=== PATIENT | male | born 1980 | race Two or more races ===

== ENCOUNTER 2018-08-03 19:30 | Observation (INO) | payer MEDICAID ==
[~2018-08-03] VITALS: Ht 170.2 cm; Wt 64.4 kg
[2018-08-03 20:13] LABS: Eosinophils # (auto) 0 uL; Hematocrit 42.9 % (41.0-53.0); Hemoglobin 14.5 g/dL (13.5-17.5); Lymphocytes # (auto) 1.1 uL; Mean Corpuscular Hemoglobin 34.2 pg (28.0-32.0); Mean Corpuscular Hgb Conc. 33.9 g/dL (32.0-36.0); Mean Corpuscular Volume 100.9 fL (80.0-100.0); Monocytes # (auto) 0.3 uL; Nucleated Red Blood Cells % 0.1 %; Red Blood Cells 4.25 10^6/uL (4.5-5.90)
[2018-08-03 20:15] LABS: Basophils # (auto) 0 uL; Basophils % (auto) 0.8 % (0.0-2.0); Eosinophils % (auto) 1.2 % (0.0-7.0); Lymphocytes % (auto) 35.5 % (10.0-50.0); Monocytes % (auto) 8.7 % (0.0-12.0); Neutrophils # (auto) 1.7 uL; Neutrophils % (auto) 53.8 % (37.0-80.0); Platelet Count (auto) 37 10^3/uL (140-450); Red Cell Distribution Width 14.6 % (11.8-14.3); White Blood Cell 3.1 10^3/uL (4.4-10.8)
[2018-08-03 20:27] LABS: Albumin 3.8 g/dL (3.4-5.0); BUN/Creatinine Ratio 7.1; Calcium 8.2 mg/dL (8.5-10.1); Magnesium 1.9 mg/dL (1.6-2.6)
[2018-08-03 20:30] LABS: Bilirubin, Total 2.8 mg/dL (0.2-1.0)
[2018-08-03 20:40] LABS: Urine Bacteria NONE SEEN /hpf (None Seen); Urine Blood Negative /uL (Negative); Urine Mucus FEW (None Seen); Urine Specific Gravity 1.013 (1.001-1.035); Urine WBC 1 /hpf (0 - 3)
[2018-08-03 21:51] LABS: Amphetamine Screen, Urine NEGATIVE (NEGATIVE); Barbiturate Scree,Urine NEGATIVE (NEGATIVE); Benzodiazephine Screen, Urine NEGATIVE (NEGATIVE); Cannabinoid Screen, Urine POSITIVE (NEGATIVE); Cocaine Screen, Urine NEGATIVE (NEGATIVE); Opiate Scree,Urine NEGATIVE (NEGATIVE); Phencyclidine Screen, Urine NEGATIVE (NEGATIVE)
[2018-08-04] MEDS ORDERED: THIAMINE INJ 100 MG, MULTIPLE VITAMIN 10 ML, FOLIC ACID 1 MG, MAGNESIUM SULF SDV 50% 8 ... IV SCH ×5 (01:15)
[2018-08-04] MEDS ORDERED: SODIUM CHLORIDE 0.9% 1,000 ML IV ONE (02:45)
[2018-08-04 05:19] VITALS: BP 111/63
== END 2018-08-04 05:37 | disposition home or self-care (01) | DRG 52 ==
LOC: ER 19:34 → OVERFLOW 19:35 → ER 08-04 05:37
PROVIDERS: ADMIT Emergency Medicine; ATTEND Emergency Medicine
DX: G92 Toxic encephalopathy (principal); F10.220 Alcohol dependence with intoxication, uncomplicated; F12.10 Cannabis abuse, uncomplicated; Z83.3 Family history of diabetes mellitus
CPT/HCPCS: 36415; 80053; 80307; 80320; 81001; 83735; 85025; 96365; G0378; J7030

== ENCOUNTER 2019-09-14 19:24 | Emergency (ER) | payer MEDICAID ==
[~2019-09-14] VITALS: Ht 167.6 cm; Wt 74.8 kg
[2019-09-14] MEDS ORDERED: SODIUM CHLORIDE 0.9% 1,000 ML IV ONE (21:15)
[2019-09-14] MEDS ORDERED: THIAMINE INJ 100 MG in SODIUM CHLORIDE 0.9% 1,000 ML IV ONE (21:15)
[2019-09-15 04:10] LABS: White Blood Cell 3.2 10^3/uL (4.4-10.8)
[2019-09-15 04:11] LABS: Hematocrit 41.9 % (41.0-53.0); Hemoglobin 14.1 g/dL (13.5-17.5); Mean Corpuscular Hgb Conc. 33.7 g/dL (32.0-36.0); Mean Corpuscular Volume 103.8 fL (80.0-100.0); Platelet Count (auto) 51 10^3/uL (140-450); Red Blood Cells 4.04 10^6/uL (4.5-5.90); Red Cell Distribution Width 13.1 % (11.8-14.3)
[2019-09-15 04:20] LABS: Band Neutrophils % (manual) 0; Basophils % (manual) 0 (0.0-2.0); Blast Cells 0; Metamyelocytes % 0; Myelocytes % 0; Promyelocytes % 0; Reactive Lymphocytes 0
[2019-09-15 04:25] LABS: Amylase 108 U/L (25-115); Lipase 334 U/L (73-393)
[2019-09-15 04:26] LABS: Albumin 3.7 g/dL (3.4-5.0); BUN/Creatinine Ratio 7.6; Calcium 8.4 mg/dL (8.5-10.1); Potassium 3.9 mmol/L (3.5-5.1)
[2019-09-15 04:29] LABS: Bilirubin, Total 1.5 mg/dL (0.2-1.0); Total Protein 9.7 g/dL (6.4-8.2)
[2019-09-15 07:37] LABS: Eosinophils % (manual) 6 (0-7); Lymphocytes % (manual) 51 (10.0-50.0); Monocytes % (manual) 16 (0-12)
[2019-09-15 11:20] VITALS: BP 105/66
== END 2019-09-15 11:37 | disposition home or self-care (01) ==
LOC: EDBD 19:24 → ER 19:24
DX: F10.229 Alcohol dependence with intoxication, unspecified (principal); K70.9 Alcoholic liver disease, unspecified; Y90.8 Blood alcohol level of 240 mg/100 ml or more
CPT/HCPCS: 36415; 80053; 80320; 82150; 83690; 96365; 99283; J3411; J7030

== ENCOUNTER 2019-11-07 14:51 | Inpatient (IN) | payer MEDICAID ==
[~2019-11-07] VITALS: Ht 167.6 cm; Wt 69.7 kg
[2019-11-07] MEDS ORDERED: SODIUM CHLORIDE 0.9% 1,000 ML IV ONE ×2 (15:10)
[2019-11-07] MEDS ORDERED: LEVETIRACETAM INJ 500 MG in D5W 5% 100 ML IV ONE (16:00)
[2019-11-07 16:04] LABS: Urine Bacteria NONE SEEN /hpf (None Seen); Urine Blood Negative /uL (Negative); Urine Mucus FEW (None Seen); Urine Specific Gravity 1.023 (1.001-1.035); Urine WBC 1 /hpf (0 - 3)
[2019-11-07 16:43] LABS: Eosinophils # (auto) 0 uL; Lymphocytes # (auto) 0.3 uL
[2019-11-07 16:45] LABS: Basophils # (auto) 0.1 uL; Basophils % (auto) 2.1 % (0.0-2.0); Hemoglobin 12.8 g/dL (13.5-17.5); Lymphocytes % (auto) 4.4 % (10.0-50.0); Mean Corpuscular Hemoglobin 34.7 pg (28.0-32.0); Mean Corpuscular Hgb Conc. 34.6 g/dL (32.0-36.0); Mean Corpuscular Volume 100.3 fL (80.0-100.0); Monocytes # (auto) 0.5 uL; Neutrophils # (auto) 4.8 uL; Neutrophils % (auto) 84.5 % (37.0-80.0); Nucleated Red Blood Cells % 0.1 %; Platelet Count (auto) 66 10^3/uL (140-450); Red Blood Cells 3.69 10^6/uL (4.5-5.90); Red Cell Distribution Width 15.1 % (11.8-14.3); White Blood Cell 5.6 10^3/uL (4.4-10.8)
[2019-11-07] MEDS ORDERED: chlordiazePOXIDE HCL 25 MG CAP PO ONE (16:45)
[2019-11-07 16:46] LABS: Calcium 8.6 mg/dL (8.5-10.1); Potassium 3.6 mmol/L (3.5-5.1)
[2019-11-07 16:49] LABS: Albumin 3.2 g/dL (3.4-5.0); BUN/Creatinine Ratio 8.6
[2019-11-07 16:54] LABS: Bilirubin, Total 3.2 mg/dL (0.2-1.0); Total Protein 8.2 g/dL (6.4-8.2)
[2019-11-07 17:12] LABS: Cannabinoid Screen, Urine POSITIVE (NEGATIVE)
[2019-11-07 17:21] LABS: Alcohol, Urine < 3.0 mg/dL (0-5); Amphetamine Screen, Urine NEGATIVE (NEGATIVE); Barbiturate Scree,Urine NEGATIVE (NEGATIVE); Benzodiazephine Screen, Urine NEGATIVE (NEGATIVE); Cocaine Screen, Urine NEGATIVE (NEGATIVE); Opiate Scree,Urine NEGATIVE (NEGATIVE); Phencyclidine Screen, Urine NEGATIVE (NEGATIVE)
[2019-11-07] MEDS ORDERED: THIAMINE 100mg/ml INJ (200mg/2ml VIAL) IV ONE (18:15)
[2019-11-07] MEDS ORDERED: PIPERACILLIN-TAZOB 3.375GM 100 ML IV ONE (18:15)
[2019-11-07] MEDS ORDERED: ENOXAPARIN SOD 30 MG/0.3 ML SYRINGE SC ONE (18:15)
[2019-11-07] MEDS ORDERED: IBUPROFEN 600 MG TAB PO ONE (18:30)
[2019-11-07] MEDS ORDERED: LORazepam 2MG/ML-1ML VIAL IV PRN (21:00)
[2019-11-07] MEDS ORDERED: ONDANSETRON HCL 4 MG/2 ML VIAL IV PRN (21:00)
[2019-11-07] MEDS ORDERED: TEMAZEPAM 15 MG CAP PO PRN (21:00)
[2019-11-07] MEDS ORDERED: NITROGLYCERIN 0.4 MG SL TAB SL PRN (21:30)
[2019-11-07] MEDS ORDERED: MORPHINE SULF INJ 2 MG/ML SYRINGE 1ML IV PRN (21:30)
--- NOTE | 2019-11-07 23:15 | NUR ---
Telemetry admit from [facility] PIZANOLA[facility] admitted to Telemetry unit after NO SBAR WAS received. Patient oriented to TOOTIE HONG RN primary RN, unit, room, bed, and unit policies regarding patient care and visiting hours. Patient now on continuous telemetry monitoring, tele box # 69 and telemetry reading on arrival to unit is sinus rhythm 8 1bpm. Patient weighed by bedscale and encouraged to call if they need something. All questions and concerns addressed, patient verbalized understanding. Patient is A/O x4, on RA, skin is overall intact but there is an abrasion to the upper and lower lip from falling due to a seizure at home on 11/07/19. Call light is within reach, side rails up x2, bed is in lowest position, bed alarm is on, SEIZURE PRECAUTIONS ARE AT BEDSIDE. Will continue to monitor.
--- NOTE | 2019-11-07 23:15 | NUR ---
Patient states he will have a family member bring in his home medications tomorrow.
[2019-11-07] MEDS: LEVETIRACETAM INJ 500 MG in D5W 5% 100 ML IV SCH (23:35)
[2019-11-07 23:54] VITALS: BP 112/58
--- NOTE | 2019-11-07 23:55 | NUR ---
Wound picture taken of upper and lower lip for admission reference.
[2019-11-08 05:46] VITALS: BP 98/60
[2019-11-08 06:32] LABS: Potassium 3.2 mmol/L (3.5-5.1)
[2019-11-08 06:40] LABS: Albumin 2.9 g/dL (3.4-5.0); BUN/Creatinine Ratio 12.7; Bilirubin, Total 3.5 mg/dL (0.2-1.0); Total Protein 7.2 g/dL (6.4-8.2)
--- NOTE | 2019-11-08 07:30 | NUR ---
Endorsed care to Rayray HAHN. Patient is resting in bed, no S/S of distress or pain. Seizure precautions are in place. Call light is within reach.
[2019-11-08 08:19] VITALS: BP 115/67
[2019-11-08] MEDS ORDERED: ASPirin 81 mg TAB PO SCH (10:00)
[2019-11-08] MEDS: LEVETIRACETAM INJ 500 MG in D5W 5% 100 ML IV SCH (10:04)
[2019-11-08] MEDS: PANTOPRAZOLE 40 MG TAB PO SCH (10:04)
[2019-11-08 10:56] LABS: Basophils # (auto) 0 uL; Basophils % (auto) 0.7 % (0.0-2.0); Eosinophils # (auto) 0.1 uL; Eosinophils % (auto) 1.5 % (0.0-7.0); Hemoglobin 12.1 g/dL (13.5-17.5); Lymphocytes # (auto) 0.9 uL; Monocytes # (auto) 0.7 uL; Neutrophils # (auto) 2.5 uL; Nucleated Red Blood Cells % 0.2 %; White Blood Cell 4.2 10^3/uL (4.4-10.8)
[2019-11-08 10:59] LABS: Hematocrit 34.6 % (41.0-53.0); Lymphocytes % (auto) 21.5 % (10.0-50.0); Mean Corpuscular Hemoglobin 34.9 pg (28.0-32.0); Mean Corpuscular Hgb Conc. 34.8 g/dL (32.0-36.0); Mean Corpuscular Volume 100.3 fL (80.0-100.0); Neutrophils % (auto) 60.3 % (37.0-80.0); Red Blood Cells 3.45 10^6/uL (4.5-5.90); Red Cell Distribution Width 14.8 % (11.8-14.3)
[2019-11-08] MEDS ORDERED: POTASSIUM CHL 20 Meq TABLET PO ONE (11:30)
[2019-11-08 11:40] LABS: Platelet Count (auto) 17 10^3/uL (140-450)
--- NOTE | 2019-11-08 11:40 | NUR ---
RECEIVED CRITICAL PLATLET FROM JESENIA IN LAB. WILL NOTIFY Tari DOVE.
--- NOTE | 2019-11-08 11:49 | NUR ---
ZANA DOVE OF CRITICAL PLATLET. NEW ORDERS IN EMR.
--- NOTE | 2019-11-08 13:08 | NUR ---
CALLED PHARMACY REGARDING MULTIVITAMIN BAG. PER PHARMACY STILL WAITING FOR BAGS TO BE VERIFIED.
[2019-11-08 13:21] VITALS: BP 98/52
[2019-11-08] MEDS: FOLIC ACID 1 MG, MULTIPLE VITAMIN 10 ML, MAGNESIUM SULF SDV 50% 8 MEQ, THIAMINE INJ 100... INJ SCH ×5 (13:43)
--- NOTE | 2019-11-08 16:44 | NUR ---
assessment re: ss consult Patient is a 39 year old male who is alert and oriented. Rayray HAHN translated for us. Patients cognitive abilities are intact. Prior to admission patient lived home with family and functioned independently. Patient informed me he is able to care for his own ADLs. Per patient he will return home to his prior living arrangements post discharge and family will transport him home. Patient informed me he has had seizures for the past 1.5 years. Patient informed me he quit taking his medications because they make him feel sluggish. Patient may benfit from home health safety on discharge. Patient informed me he feels safe returning home on discharge. I informed patient he has a right to speak to a social media community manager regarding all care. I informed patient he has a right to participate in any and all discharge planning. Patient does not have a POA and advanced directive. I have offered patient information on POA and advanced directives. I informed the patient the advantages and benefits of having an Advanced Directive. Patient verbalized understanding and agreed to discharge plan. Addendum: 11/08/19 at 1652 by Gauri VANESSA Amended: Links added.
[2019-11-08 16:50] VITALS: BP 105/72
--- NOTE | 2019-11-08 19:56 | NUR ---
Opening Shift Note Assumed care of patient, awake and alert. No S/S of distress/SOB or pain. Will continue to monitor for changes Q1hr and PRN. Call zamorano with in reach. Bed in low position.
[2019-11-08 22:21] VITALS: BP 148/74
--- NOTE | 2019-11-08 23:03 | NUR ---
PATIENT AMBULATING WITH UNSTEADY GAIT. DENIES N/V,DENIES HALLUCINATION, A&OX4, NO TREMORS NOTED, LAST ALCOHOL DRINK 4 DAYS AGO, NO S/SX OF ALCOHOL WITHDRAWAL NOTED. ENCOURAGE TO CALL FOR HELP, BEFORE GETTING OUT OF BED. BED ALARM ON.
--- NOTE | 2019-11-09 01:32 | NUR ---
PATIENT HAVING EPISODES OF HALLUCINATIONS/PARANOIA, PATIENT SAID "SOMEONE IS GOING TO GET HIM". PATIENT PUT HIS CLOTHES ON AND TRIED TO LEAVE. SECURITY GUARDS CALLED TO STOP PATIENT. LIBRIUM GIVEN. CALLED HOSPITALIST FOR FURTHER ORDERS.
[2019-11-09] MEDS: chlordiazePOXIDE HCL 25 MG CAP PO PRN ×2 (01:35→13:48)
--- NOTE | 2019-11-09 01:42 | NUR ---
HOSPITALIST CALLED BACK WITH NEW ORDER FOR LORAZEPAM 1MG IV Q4HRS PRN ANXIETY/ALCOHOL WITHDRAWAL.
[2019-11-09] MEDS: LORazepam 2MG/ML-1ML VIAL IV PRN ×5 (01:56→21:37)
--- NOTE | 2019-11-09 01:56 | NUR ---
LORAZEPAM 1MG IV GIVEN.
--- NOTE | 2019-11-09 02:11 | NUR ---
PATIENT TRANSFERRED TO ROOM 214 SITTER ROOM DUE TO RISK OF LEAVING HOSPITAL. REPORT GIVEN TO MYAH. TRANSFERRED VIA WHEELCHAIR.
--- NOTE | 2019-11-09 02:20 | NUR ---
RECEIVED REPORT FROM LINDSEY RN AND ASSUMED CARE OF PT AT THIS TIME.
--- NOTE | 2019-11-09 02:25 | NUR ---
FLORIST DESIGNER CALLED SECURITY TO ROOM BECAUSE PT REFUSING TO ENTER THE ROOM. SECURITY ENCOURAGED PT IT IS OK TO ENTER THE ROOM. PT SPEAKS MOSTLY PORTUGUESE AND VERBALIZES UNDERSTANDING AND GOT INTO BED. BED IS LOW, WHEELS ARE LOCKED, AND CALL LIGHT IS WITH IN REACH. PT ALSO WITH SITTER FOR PT SAFETY.
--- NOTE | 2019-11-09 04:55 | NUR ---
PT REPORTED TO HAVE PULLED A KNIFE ON PT IN BED B AND SECURITY CALLED AND KNIFE RETRIEVED AND DR LAGUERRE GAVE ORDERS FOR 4 POINT RESTRAINTS.
[2019-11-09 05:00] VITALS: BP 134/60
--- NOTE | 2019-11-09 05:00 | NUR ---
PT PLACED IN 4 POINT SOFT RESTRAINTS AT THIS TIME.
--- NOTE | 2019-11-09 07:00 | NUR ---
PT CONTINUES TO BE DELUSIONAL STATING THAT SOMEONE IS COMING AFTER HIM AND THAT HE WANTS HIS CLOTHING BACK. EXPLAINED TO PT THAT HE IS IN THE HOSPITAL AND THAT HE IS SAFE HERE. PT THEN STATES " NO, I WILL KEEP MYSELF SAFE." PT WILL SPEAK IN THAI AND BULGARIAN AND UNDERSTANDS AND ANSWERS WHEN SPOKEN TO IN THAI. PT HAS BEEN CLEANED AND ALL LINENS AND GOWN HAS BEEN CHANGED R/T PT IS INCONTINENT OF URINE.
--- NOTE | 2019-11-09 07:00 | NUR ---
Opening Shift Note Assumed care of patient, awake and alert. No S/S of distress/SOB or pain. Bed in lowest/locked position, bed rails up x2, call light within reach, sitter at bedside. Safety measures in place. Instructed on POC and to call for assist PRN, will continue to monitor for changes Q1hr and PRN.
--- NOTE | 2019-11-09 08:00 | NUR ---
ROUNDS PATIENT AGITATED SPEAKING PART [place] LEONEAN, PART HUNGARIAN, PART RAMBLING. UNCOMPREHENSIBLE LANGUAGE AT TIMES. PATIENT LUNGING AT EMPLOYEES. PATIENT ASKING ABOUT HIS KNIFE. REORIENTING PATIENT TO SITUATION, TIME, AND PLACE.
[2019-11-09 09:00] VITALS: BP 159/72
--- NOTE | 2019-11-09 09:00 | NUR ---
ROUNDS PATIENT AGITATED SPEAKING PART SLOVAK, PART SLOVENIAN, PART RAMBLING. UNCOMPREHENSIBLE LANGUAGE AT TIMES. PATIENT LUNGING AT EMPLOYEES. PATIENT ASKING ABOUT HIS KNIFE. REORIENTING PATIENT TO SITUATION, TIME, AND PLACE. MD AWARE. NEW ORDERS RECEIVED/CARRIED OUT. WILL CONTINUE TO MONITOR Q15MIN PER PROTOCOL
[2019-11-09 09:59] LABS: Basophils # (auto) 0 uL; Eosinophils # (auto) 0.1 uL; Hemoglobin 12.6 g/dL (13.5-17.5); Lymphocytes # (auto) 0.9 uL; Mean Corpuscular Hemoglobin 34.3 pg (28.0-32.0); Monocytes # (auto) 0.6 uL; Neutrophils # (auto) 2.3 uL; White Blood Cell 3.9 10^3/uL (4.4-10.8)
[2019-11-09] MEDS: PANTOPRAZOLE 40 MG TAB PO SCH (10:00)
--- NOTE | 2019-11-09 10:00 | NUR ---
ROUNDS PATIENT AGITATED SPEAKING PART ROMANIAN, PART WELSH, PART RAMBLING. PATIENT SPAT OUT MORNING MEDS. EDUCATED PATIENT ON IMPORTANCE OF MEDS. PATIENT REFUSING AT THIS TIME. WILL CONTINUE TO EDUCATE AND MONITOR
[2019-11-09 10:01] LABS: Basophils % (auto) 0.9 % (0.0-2.0); Eosinophils % (auto) 2.1 % (0.0-7.0); Hematocrit 37.1 % (41.0-53.0); Lymphocytes % (auto) 22.5 % (10.0-50.0); Mean Corpuscular Hgb Conc. 33.9 g/dL (32.0-36.0); Mean Corpuscular Volume 101.2 fL (80.0-100.0); Monocytes % (auto) 15.4 % (0.0-12.0); Neutrophils % (auto) 59.1 % (37.0-80.0); Nucleated Red Blood Cells % 0.1 %; Red Blood Cells 3.67 10^6/uL (4.5-5.90); Red Cell Distribution Width 14.9 % (11.8-14.3)
[2019-11-09 10:04] LABS: Platelet Count (auto) 19 10^3/uL (140-450)
[2019-11-09 10:18] LABS: BUN/Creatinine Ratio 8.3; Calcium 8.5 mg/dL (8.5-10.1); Potassium 3.4 mmol/L (3.5-5.1)
[2019-11-09] MEDS ORDERED: HALOPERIDOL LACTATE 5 MG/ML INJ VIAL IM PRN (11:15)
--- NOTE | 2019-11-09 11:30 | NUR ---
MEDICATIONS PATIENT EXTREMELY AGITATED, LUNGING AT CURRENCY EXAMINER. YELLING AND SCREAMING, ASKING FOR HIS KNIFE. WILL MEDICATE PER MD ORDERS
--- NOTE | 2019-11-09 12:30 | NUR ---
ROUNDS PATIENT STILL AGITATED. MEDICATED PER MD ORDERS. WILL CONTINUE TO MONITOR
[2019-11-09 13:00] VITALS: BP 112/68
--- NOTE | 2019-11-09 13:00 | NUR ---
PAGED PAGED DR MCGRATH RE: PATIENT AGITATION AND HOSTILE BEHAVIORS. NEW ORDER RECEIVED/ CARRIED OUT. WILL CONTINUE TO MONITOR.
[2019-11-09] MEDS ORDERED: HALOPERIDOL LACTATE 5 MG/ML INJ VIAL IM ONE (13:15)
--- NOTE | 2019-11-09 13:30 | NUR ---
URINATION PATIENT REFUSED TO URINATE IN URINAL, AIMED TOWARDS PATIENT IN B BED. EDUCATED PATIENT ON "THERE WILL BE NO TOLERANCE ON THESE ACTIONS." PATIENT PASSIVE AND RAMBLING.
[2019-11-09] MEDS: POTASSIUM CHLORIDE 20 MEQ in D5W/LACTATED RINGERS 1,000 ML IV SCH ×2 (13:35→21:37)
[2019-11-09 13:58] LABS: Cholesterol 156 mg/dL (< 200)
--- NOTE | 2019-11-09 14:00 | NUR ---
ROUNDS US [facility] IN ROOM PATIENT SITTING UP IN BED LUNGING AT [facility]. POWERTRAIN ENGINEER ASSISTED PATIENT BACK TO SUPINE POSITION AND INSTRUCTED PATIENT TO RELAX. PATIENT EXTREMELY AGITATED. NOTIFIED DR MCGRATH. NEW ORDERS RECEIVED/CARRIED OUT. WILL CONTINUE TO MONITOR
[2019-11-09 14:03] LABS: HDL Cholesterol 76 mg/dL (40-59); LDL Cholesterol 69 mg/dL (< 100); Triglycerides 73 mg/dL (< 150)
[2019-11-09] MEDS ORDERED: ETOMIDATE (2MG/ML) 20ML VIAL IV ONE (14:29)
--- NOTE | 2019-11-09 14:30 | NUR ---
ROOMS PATIENT MOVED TO ROOM 204 DUE TO AGGRESSIVE BEHAVIOR TO BED B. PATIENT ASLEEP, EVEN UNLABORED RESPIRATIONS. WILL CONTINUE TO MONITOR
[2019-11-09] MEDS ORDERED: ROCURONIUM 10MG/ML 10ML VIAL IV ONE (14:31)
[2019-11-09 17:00] VITALS: BP 125/82
--- NOTE | 2019-11-09 17:00 | NUR ---
ROUNDS VITAL SIGNS BEING ASSESSED, MEDICATING PATIENT AT THIS TIME AND PATIENT AWOKE BEING AGGRESSIVE, YELLING AND SCREAMING. ATTEMPTED TO DISTRACT PATIENT AND ASKED HIM TO RELAX. PATIENT IGNORING RN REQUEST STILL AGITATED. WILL NOTIFY MD
[2019-11-09] MEDS: FOLIC ACID 1 MG, MULTIPLE VITAMIN 10 ML, MAGNESIUM SULF SDV 50% 8 MEQ, THIAMINE INJ 100... INJ SCH ×5 (17:09)
--- NOTE | 2019-11-09 17:15 | NUR ---
MD DR MARTINEZ AT BEDSIDE ATTEMPTING TO DISCUSS POC WITH PATIENT. PATIENT REFUSING TO LISTEN. NEW ORDERS RECEIVED/CARRIED OUT. WILL CONTINUE TO MONITOR
--- NOTE | 2019-11-09 19:30 | NUR ---
Opening Shift Note: A&Ox0-1, restless in bed. Room air, pain level 0/10 Landeros-Quinn scale, and currently bedrest. Bed locked in lowest position, side rails up x3, call light within reach, bed alarm on for patient safety, and sitter present at bedside for patient safety. Patient is currently in x4 soft restraints related to violent and combative behavior related to alcohol withdrawal. IV: 22 g in right forearm currently running a banana bag at 126 ml/hr inserted on 11/09/19. Skin: swollen/scabbed lip and bump to the forehead both CHANGE OF ADDRESS CLERK. Patient is unable to understand the plan of care or education at this time. Will continue to round Q15min per behavioral restraint protocol.
--- NOTE | 2019-11-09 21:00 | NUR ---
Behavioral restraint order renewed by Jamaal Lin MD.
[2019-11-09 22:00] VITALS: BP 132/84
[2019-11-10] MEDS: chlordiazePOXIDE HCL 25 MG CAP PO PRN (00:48)
--- NOTE | 2019-11-10 00:58 | NUR ---
Behavioral restraint order renewed by Jamaal Lin MD. Current status of patient: talking to the wall and "people" that aren't there; hallucinations present; patient unable to state his name, place, situation, or current time. Tremors are now present in bilateral hands and patient is very restless. New order received to increased Ativan to 2 mg Q4H for alcohol withdrawal.
[2019-11-10] MEDS: LORazepam 2MG/ML-1ML VIAL IV PRN ×2 (01:30→05:45)
[2019-11-10 05:34] VITALS: BP 124/91
--- NOTE | 2019-11-10 07:30 | NUR ---
Opening Shift Note RECEIVED REPORT FROM NOC RN. Assumed care of patient, awake and alert. No S/S of distress/SOB or pain. BED IN LOWEST, LOCKED POSITION WITH SIDERTAILS UP x2 AND CALL LIGHT WITHIN REACH. PATIENT IS IN 4-POINT SOFT RESTRAINTS WITH SITTER AT BEDSIDE. Will continue to monitor for changes Q15MIN and PRN.
[2019-11-10] MEDS: POTASSIUM CHLORIDE 20 MEQ in D5W/LACTATED RINGERS 1,000 ML IV SCH (07:43)
[2019-11-10] MEDS: PANTOPRAZOLE 40 MG TAB PO SCH (10:00)
[2019-11-10] MEDS: FOLIC ACID 1 MG, MULTIPLE VITAMIN 10 ML, MAGNESIUM SULF SDV 50% 8 MEQ, THIAMINE INJ 100... INJ SCH ×5 (11:36)
--- NOTE | 2019-11-10 12:50 | NUR ---
DR. MARTINEZ AT BEDSIDE. RESTRAINTS DISCONTINUED PER DR. MARTINEZ'S ORDERS. CONTINUE LIBRIUM AND BANANA BAG. SITTER REMAINS AT BEDSIDE.
[2019-11-10 14:42] LABS: Hemoglobin 13.4 g/dL (13.5-17.5)
[2019-11-10 14:44] LABS: Hematocrit 39.2 % (41.0-53.0); Mean Corpuscular Hemoglobin 34.2 pg (28.0-32.0); Mean Corpuscular Hgb Conc. 34.2 g/dL (32.0-36.0); Mean Corpuscular Volume 100.2 fL (80.0-100.0); Platelet Count (auto) 49 10^3/uL (140-450); Red Blood Cells 3.91 10^6/uL (4.5-5.90); Red Cell Distribution Width 15.1 % (11.8-14.3)
[2019-11-10 14:45] LABS: Basophils % (manual) 0 (0.0-2.0); Blast Cells 0; Eosinophils % (manual) 0 (0-7); Metamyelocytes % 0; Myelocytes % 0; Promyelocytes % 0; Reactive Lymphocytes 0
[2019-11-10 14:54] LABS: Band Neutrophils % (manual) 1; Lymphocytes % (manual) 13 (10.0-50.0); Monocytes % (manual) 14 (0-12)
[2019-11-10 14:55] LABS: INR 1.38 (0.9-1.15); Partial Thromboplastin Time 30.8 sec (23.64-32.05)
[2019-11-10 14:59] LABS: Albumin 3.2 g/dL (3.4-5.0); Calcium 8.8 mg/dL (8.5-10.1); Potassium 3.4 mmol/L (3.5-5.1)
[2019-11-10 15:02] LABS: BUN/Creatinine Ratio 4.6; Bilirubin, Total 2.5 mg/dL (0.2-1.0); Phosphorus 3.8 mg/dL (2.5-4.90); Total Protein 8.2 g/dL (6.4-8.2)
[2019-11-10 17:00] VITALS: BP 140/86
--- NOTE | 2019-11-10 19:30 | NUR ---
Opening Shift Note Assumed care of patient, patient is sleeping rr 17 chest rise and fall bilateral. No S/S of distress/SOB or pain. will continue to monitor for changes Q1hr and PRN. bed in low position and call light within reach. bed alarm on
[2019-11-10] MEDS ORDERED: POTASSIUM EFFERVESENT TAB 25 MEQ PO ONE (20:30)
[2019-11-10 22:00] VITALS: BP 122/85
--- NOTE | 2019-11-11 03:30 | NUR ---
provided patient with towels/linen to help patient clean up. patient refused.
--- NOTE | 2019-11-11 03:34 | NUR ---
spoke with special education professional pharmacy spoke with oncall pharmacy . patient has iv fluids due. bag available in pyxis is . per pharmacist bruce wait until pharmacy comes in at 0600 to obtain a new bag.
[2019-11-11] MEDS: POTASSIUM CHLORIDE 20 MEQ in D5W/LACTATED RINGERS 1,000 ML IV SCH ×3 (03:39→13:45)
[2019-11-11 05:21] VITALS: BP 122/77
--- NOTE | 2019-11-11 06:30 | NUR ---
CALLED PHARMACY LINE NOT GOING THROUGH PER CLINICAL SCIENCE LIAISON. EXTENSION NUMBER PROVIDED
[2019-11-11 06:34] LABS: Hemoglobin 12.8 g/dL (13.5-17.5)
[2019-11-11 06:37] LABS: Hematocrit 37.7 % (41.0-53.0); Mean Corpuscular Volume 100.2 fL (80.0-100.0); Platelet Count (auto) 41 10^3/uL (140-450); Red Blood Cells 3.76 10^6/uL (4.5-5.90); Red Cell Distribution Width 15.3 % (11.8-14.3); White Blood Cell 3.9 10^3/uL (4.4-10.8)
[2019-11-11 06:41] LABS: Band Neutrophils % (manual) 0; Basophils % (manual) 0 (0.0-2.0); Blast Cells 0; Metamyelocytes % 0; Myelocytes % 0; Promyelocytes % 0; Reactive Lymphocytes 0
--- NOTE | 2019-11-11 06:42 | NUR ---
SPOKE WITH PHARMACY. PER PHARMACY THEY WILL SEND FLUIDS SCHEDULED WITHIN 10-15MIN.
--- NOTE | 2019-11-11 06:44 | NUR ---
PATIENT ROUNDS. PATIENT IS SLEEPING IN BED WITH BILATERAL CHEST RISE AND FALL RR 15. BED IN LOW POSITION CALL LIGHT WITHIN REACH. BED ALARM ON
[2019-11-11 07:12] LABS: Potassium 3.4 mmol/L (3.5-5.1)
[2019-11-11 07:19] LABS: BUN/Creatinine Ratio 7.4; Calcium 8.7 mg/dL (8.5-10.1)
--- NOTE | 2019-11-11 07:43 | NUR ---
report given to hailey myers
--- NOTE | 2019-11-11 07:50 | NUR ---
STRESS AIR TABLE OPERATOR AT BED SIDE WITH ADENOSINE INJECTION
--- NOTE | 2019-11-11 08:00 | NUR ---
ASSESSMENT NOTE PT IS RESTING IN BED COMFORTABLY, SLEEPY MOST OF THE TIME, ALERT ORIENTED X3, CONFUSED TO TIME AND SITUATION, PT HAS PUMP IN THE FOREHEAD, BRUISED LOWER LIP, SELF REPOSITION, ABLE TO IDENTIFY HIS DEMANDS, ON SEIZURE, FALL PRECAUTIONS , NEXT TO NURSING STATION, MONITOR PT AT ALL TIMES
[2019-11-11 08:35] VITALS: BP 122/66
[2019-11-11] MEDS ORDERED: ADENOSINE 57 MG in GIVE UN-DILUTED 0 ML IV STA (08:43)
[2019-11-11] MEDS: PANTOPRAZOLE 40 MG TAB PO SCH (08:45)
--- NOTE | 2019-11-11 09:00 | NUR ---
IV insertion IV access obtained, via clean sterile technique by inserting 20 gauge catheter at after attempt(s). IV secured properly. No trauma to site. Patient tolerated procedure well. for stress test purposes
--- NOTE | 2019-11-11 09:30 | NUR ---
OUT FOR STRESS TEST VIA WHEELCHAIR
--- NOTE | 2019-11-11 10:30 | NUR ---
PT IS BACK TO HIS ROOM, NO DISTRESS NOTED, CONTINUE MONITORING
[2019-11-11 10:55] LABS: Eosinophils % (manual) 5 (0-7); Lymphocytes % (manual) 23 (10.0-50.0); Monocytes % (manual) 19 (0-12)
[2019-11-11 10:57] VITALS: BP 120/79
[2019-11-11 16:49] VITALS: BP 121/77
[2019-11-11] MEDS: FOLIC ACID 1 MG, MULTIPLE VITAMIN 10 ML, MAGNESIUM SULF SDV 50% 8 MEQ, THIAMINE INJ 100... INJ SCH ×5 (17:21)
--- NOTE | 2019-11-11 18:54 | NUR ---
PT CONTINUE STABLE, CONTINUE MONITORING
--- NOTE | 2019-11-11 19:24 | NUR ---
Opening Shift Note Assumed care of patient, awake and alert times 4. Patient ambulated to the restroom without assistance. patient currently running banana bag per dayshift rn bag was started late. Patient allowed me to assess his back and upper/lower extremities. skin is intact. No S/S of distress/SOB or pain. Instructed on POC and to call for assist PRN, will continue to monitor for changes Q1hr and prn. bed in low position and call light within reach. seizure precautions in place.
[2019-11-11 22:00] VITALS: BP 126/77
[2019-11-12] MEDS: POTASSIUM CHLORIDE 20 MEQ in D5W/LACTATED RINGERS 1,000 ML IV SCH ×2 (00:59→09:57)
[2019-11-12 05:26] VITALS: BP 103/78
--- NOTE | 2019-11-12 06:38 | NUR ---
patient rounds patient in bed sleeping bilateral chest rise and fall rr 16. no signs of distress sob/pain. bed in low position and call light within reach.
--- NOTE | 2019-11-12 07:15 | NUR ---
Opening Shift Note Assumed care of patient, awake and alert. No S/S of distress/SOB or pain. Instructed on POC and to call for assist PRN, will continue to monitor for changes Q1hr and PRN. Fall precaution and seizure precautions in place per safety protocol.
--- NOTE | 2019-11-12 07:21 | NUR ---
report given to daysrachelft rn. patient denies sob/distress.
[2019-11-12 09:00] VITALS: BP 132/85
[2019-11-12] MEDS: PANTOPRAZOLE 40 MG TAB PO SCH (10:15)
[2019-11-12] MEDS: FOLIC ACID 1 MG, MULTIPLE VITAMIN 10 ML, MAGNESIUM SULF SDV 50% 8 MEQ, THIAMINE INJ 100... INJ SCH ×5 (12:00)
--- NOTE | 2019-11-12 12:00 | NUR ---
Hospitalist at bedside MD Kwan at bedside, aware of patient status. New orders for discharged received, will carry out new orders and cont to monitor patient.
[2019-11-12 12:51] VITALS: BP 130/85
--- NOTE | 2019-11-12 13:30 | NUR ---
Discharge instructions given as ordered. Encourage to follow up with PMD as instructed. All questions and concerns addressed. Patient verbalized understanding. Medication reconciliation form completed and copy given to patient. IV removed with catheter intact, pressure dressing applied. Telemetry unit returned to ICU. Patient refused wheelchair and taxi voucher. Patient took all personal belongings. No distress noted at time of departure.
== END 2019-11-12 13:30 | disposition home or self-care (01) | DRG 280 ==
LOC: EDBD 14:51 → ER 14:51 → TELE 14:52 → TELE-WESTW 23:10 → TELE-CENTR 11-09 02:57
PROVIDERS: ADMIT Nurse Practitioner; ATTEND Internal Medicine Nephrology
DX: K70.40 Alcoholic hepatic failure without coma (principal); K70.30 Alcoholic cirrhosis of liver without ascites; I21.A1 Myocardial infarction type 2; G92 Toxic encephalopathy; S12.9XXA Fracture of neck, unspecified, initial encounter; D61.818 Other pancytopenia; E88.09 Other disorders of plasma-protein metabolism, not elsewhere classified; F05 Delirium due to known physiological condition; R56.9 Unspecified convulsions; G40.509 Epileptic seizures related to external causes, not intractable, without status epilepticus; S00.03XA Contusion of scalp, initial encounter; D53.9 Nutritional anemia, unspecified; G47.33 Obstructive sleep apnea (adult) (pediatric); Y90.9 Presence of alcohol in blood, level not specified; X58.XXXA Exposure to other specified factors, initial encounter; E86.0 Dehydration; E53.8 Deficiency of other specified B group vitamins; R79.89 Other specified abnormal findings of blood chemistry; F10.239 Alcohol dependence with withdrawal, unspecified; Z91.14 Patient's other noncompliance with medication regimen; E87.6 Hypokalemia; Y93.89 Activity, other specified; Y92.89 Other specified places as the place of occurrence of the external cause; Y99.8 Other external cause status
CPT/HCPCS: 36415; 70450; 71045; 74176; 76705; 78452; 80048; 80053; 80061; 80307; 80320; 81001; 82140; 82607; 83605; 83615; 83735; 84100; 84436; 84443; 84484; 85007; 85025; 85027; 85610; 85730; 86038; 87040; 93005; 93017; 95819; 96361; 96365; 96367; 96375; G0378; J0153; J2543; J7060